=== PATIENT | male | born 1985 | race Caucasian/White ===

== ENCOUNTER 2023-11-19 07:21 | Day surgery (SDC) | payer BC ==
[~2023-11-19 07:21] MED LIST: Sodium Chloride 0.9% 10 ML Syringe FLUSH PRN; Sodium Chloride 0.9% 10 ML Syringe FLUSH SCH
[2023-11-19] MEDS: Lactated Ringers 1,000 ML IV SCH (07:28)
[2023-11-19] MEDS ORDERED: Midazolam 1 MG/ML 2 ML SDV ONE (08:00)
[2023-11-19] MEDS ORDERED: Propofol 200 MG/20 ML SDV ONE ×2 (08:00→08:13)
[2023-11-19] MEDS ORDERED: fentaNYL 100 MCG/2 ML SDV ONE (08:01)
== END 2023-11-19 09:18 | disposition home or self-care (01) ==
LOC: EDSEX 07:21 → JD.SDS 07:21
PROVIDERS: ATTEND Surgery
DX: K29.50 Unspecified chronic gastritis without bleeding (principal); B96.81 Helicobacter pylori [H. pylori] as the cause of diseases classified elsewhere; K64.4 Residual hemorrhoidal skin tags; K21.9 Gastro-esophageal reflux disease without esophagitis; K60.2 Anal fissure, unspecified; L29.0 Pruritus ani; Z79.899 Other long term (current) drug therapy
CPT/HCPCS: 43239; 45378; J2250; J2704; J3010; J7120; 00813